=== PATIENT | female | born 1995 | race Two or more races ===

== ENCOUNTER 2019-12-10 09:08 | Emergency (ER) | payer OTHER ==
[2019-12-10 09:14] VITALS: BMI 21.7
--- NOTE | 2019-12-10 09:37 | PDOC ---
History of Present Illness - General Chief Complaint: Cold Symptoms Stated Complaint: COLD SYS Time Seen by Provider: 12/10/19 09:23 History Source: Patient Exam Limitations: No Limitations - History of Present Illness Is this a multiple visit Asthma Patient?: No Severity: reports: moderate Associated Symptoms: reports: chest pain/soreness, cough, fever/chills Past History - Travel Traveled outside of the country in the last 30 days: No Close contact w/someone who was outside of country & ill: No - Past Medical History Allergies/Adverse Reactions: Allergies Allergy/AdvReac Type Severity Reaction Status Date / Time No Known Allergies Allergy Verified 12/10/19 09:13 Home Medications: Ambulatory Orders NK [No Known Home Medication] 12/10/19 COPD: No - Psycho Social/Smoking Cessation Hx Smoking History: Never smoked Have you smoked in the past 12 months: No Information on smoking cessation initiated: No Hx Alcohol Use: No Drug/Substance Use Hx: No *Physical Exam - Vital Signs Last Vital Signs Temp Pulse Resp BP Pulse Ox 99.8 F H 114 H 18 121/64 100 12/10/19 09:11 12/10/19 09:11 12/10/19 09:11 12/10/19 09:11 12/10/19 09:11 Discharge - Discharge Information Clinical Impression/Diagnosis: Viral illness Condition: Stable Disposition: HOME - Follow up/Referral - Patient Discharge Instructions Additional Instructions: Alternate between acetaminophen 650 and ibuprofen 600 mg every 6 hours as needed If you develop chest pain, shortness of breath, cough, back pain or any worsening symptoms return to ED - Post Discharge Activity Work/Back to School Note: Back to Work
[2019-12-10] MEDS ORDERED: ACETAMINOPHEN 500 MG TABLET (FP) PO ONE (09:46)
--- NOTE | 2019-12-10 09:52 | PDOC ---
History of Present Illness - General Chief Complaint: Cold Symptoms Stated Complaint: COLD SYS Time Seen by Provider: 12/10/19 09:23 History Source: Patient Exam Limitations: No Limitations - History of Present Illness Initial Comments: 12/10/19 09:47 24-year-old healthy female presents complaining of nasal congestion, frontal headache, body aches, subjective fever and chills x 48 hours. Denies chest pain, cough, abdominal pain, vomiting, recent travel. 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 Took acetaminophen 1 dose 2 days ago. Received flu vaccine July 2019. ROS: as above PE: GENERAL: well-appearing, NAD HEAD: NCAT EYES: Pupils equal, round and reactive to light, sclera anicteric, conjunctiva clear ENT: Normal bilateral ear canals, normal bilateral TMs, pharynx: no erythema, no exudate, uvula midline NECK: supple, no lymphadenopathy CHEST: nontender RESP: clear, no w/r/r CARDIO: rrr, no m/g/r ABD: +BS, soft, nontender, non distended BACK: no midline spinal ttp, no CVAT EXTREMITIES: Normal range of motion, no edema NEUROLOGICAL: Normal speech, normal gait SKIN: Warm, Dry Is this a multiple visit Asthma Patient?: No Past History - Past Medical History Allergies/Adverse Reactions: Allergies Allergy/AdvReac Type Severity Reaction Status Date / Time No Known Allergies Allergy Verified 12/10/19 09:13 Home Medications: Ambulatory Orders NK [No Known Home Medication] 12/10/19 COPD: No - Psycho Social/Smoking Cessation Hx Smoking History: Never smoked Have you smoked in the past 12 months: No Information on smoking cessation initiated: No Hx Alcohol Use: No Drug/Substance Use Hx: No *Physical Exam - Vital Signs Last Vital Signs Temp Pulse Resp BP Pulse Ox 99.8 F H 114 H 18 121/64 100 12/10/19 09:11 12/10/19 09:11 12/10/19 09:11 12/10/19 09:11 12/10/19 09:11 Medical Decision Making - Medical Decision Making 12/10/19 09:52 24-year-old female denies past medical history complaining of body aches, frontal headache, nasal congestion and subjective fever chills x2 days. Well-appearing vss P.o. acetaminophen Note for work return precautions Discharge - Discharge Information Problems reviewed: Yes Clinical Impression/Diagnosis: Viral illness Condition: Stable Disposition: HOME - Admission No - Follow up/Referral - Patient Discharge Instructions Additional Instructions: Alternate between acetaminophen 650 and ibuprofen 600 mg every 6 hours as needed If you develop chest pain, shortness of breath, cough, back pain or any worsening symptoms return to ED - Post Discharge Activity Work/Back to School Note: Back to Work
[2019-12-10] MEDS ORDERED: ACETAMINOPHEN 500 MG TABLET (FP) ONE (09:58)
[2019-12-10 10:12] VITALS: BP 110/65; PULSE 110; TEMP 99.2
== END 2019-12-10 10:12 | disposition home or self-care (01) ==
LOC: JERFT 09:08
DX: B34.9 Viral infection, unspecified (principal)
CPT/HCPCS: 99282-25